=== PATIENT | male | born 1980 | race Caucasian/White ===

== ENCOUNTER 2021-09-07 14:10 | Outpatient (CLI) | payer BC, SELFPAY ==
[2021-09-07 18:26] LABS: Hematocrit 43.5 % (42.0-52.0); Hemoglobin 14.4 g/dL (14.0-18.0); Mean Corpuscular HGB Conc 33.1 g/dl (32-36); Mean Corpuscular Hemoglobin 31.1 pg (26-34); Mean Platelet Volume 9.9 fl (7.4-10.4); Platelet Count Result 220 k/mm3 (150-375); Red Blood Count 4.63 M/mm3 (4.6-6.20); Red Cell Distribution Width 12.8 % (11.5-14.5)
[2021-09-07 18:31] LABS: Alanine Aminotransferase 52 U/L (4-50); Albumin Level 4.3 g/dL (3.5-5.1); Alkaline Phosphatase 61 U/L (38-126); Anion Gap 9 mmol/L (8-16); Aspartate Amino Transferase 38 U/L (17-59); Bilirubin,Total 0.5 mg/dL (0.2-1.3); Blood Urea Nitrogen 15 mg/dL (9-20); Calcium 9.1 mg/dL (8.4-10.2); Carbon Dioxide 31 mmol/L (22-30); Chloride 102 mmol/L (98-107); Cholesterol 160 mg/dL (0-200); Estimated Glomerular Filt Rate > 60; Glucose 96 mg/dL (65-110); HDL Direct 21 mg/dL; Potassium 4.7 mmol/L (3.4-5.0); Sodium 142 mmol/L (137-145); Triglycerides 297 mg/dL (<150)
[2021-09-07 18:35] LABS: Hemoglobin A1C 5.1 % (<5.7)
[2021-09-07 18:45] LABS: LDL Cholesterol Direct 107 mg/dL
== END 2021-09-07 14:11 | disposition home or self-care (01) ==
LOC: ANHBWCLAB 14:12
PROVIDERS: PCP Family Medicine; Visit Provider Family Medicine
DX: E78.5 Hyperlipidemia, unspecified (principal); E66.9 Obesity, unspecified; R53.83 Other fatigue; I10 Essential (primary) hypertension; Z00.00 Encounter for general adult medical examination without abnormal findings
CPT/HCPCS: 36415; 80053; 80061; 83036; 84550; 85027

== ENCOUNTER 2022-03-15 08:38 | Outpatient (CLI) | payer BC, SELFPAY ==
--- NOTE | 2022-03-15 08:43 | EST_ITS ---
Patient Info Name: Anthony Zarate Age: 41 years : 1980 Gender: Male Ht: 73 in Wt: 230 lbs BSA: 2.34 m2 Technical Quality: Fair Exam Date: 03/15/2022 9:20 AM Exam Location: [facility] Patient Status: Outpatient Admit Date: 03/15/2022 Staff Ordering Physician: Destin Galindo DO Power System Electrical Engineer: Clare Mirza RDCS Attending Provider: Destin Galindo DO Exercise Technologist: Yesenia Rogers CT Exercise Physician: Destin Galindo DO Exam Type: CA stress echo Study Info Indications I10 - Essential (primary) hypertension - JAW PAIN Treadmill exercise stress echocardiogram is performed. Summary 1. 1. Negative Burton exercise stress test for ischemic ST changes by ECG criteria. 2. 2. Good functional capacity, achieving 12 METs of workload. 3. 3. Appropriate HR response to exercise. 4. 4. Appropriate HR reocvery at 1 minute post exercise. 5. 5. Negative stress echocardiogram for ischemia by wall motion analysis. 6. 6. Patient informed of the above results. Stress Echo Findings Left Ventricle Appropriate increase in LV endocardial thickening with systole. Appropriate augmentation of contractility with systole. No wall motion abnormality. Left Ventricle Preserved LV systolic function, no wall motion abnormality. Protocol: [place] Stress ECG Details Stage: REST Duration (min): 1 min : 2 sec Speed (mph): 0.0 Grade (%): 0 HR (bpm): 77 SBP (mmHg): 116 DBP (mmHg): 72 METS: --- Stage: REST Duration (min): 17 min : 30 sec Speed (mph): 0.0 Grade (%): 0 HR (bpm): 78 SBP (mmHg): 116 DBP (mmHg): 72 METS: --- Stage: STAGE 1 Duration (min): 1 min : 0 sec Speed (mph): 1.7 Grade (%): 10 HR (bpm): 103 SBP (mmHg): 116 DBP (mmHg): 72 METS: --- Stage: STAGE 1 Duration (min): 2 min : 0 sec Speed (mph): 1.7 Grade (%): 10 HR (bpm): 105 SBP (mmHg): 116 DBP (mmHg): 72 METS: --- Stage: STAGE 1 Duration (min): 3 min : 0 sec Speed (mph): 1.7 Grade (%): 10 HR (bpm): 106 SBP (mmHg): 164 DBP (mmHg): 76 METS: --- Stage: STAGE 2 Duration (min): 1 min : 0 sec Speed (mph): 2.5 Grade (%): 12 HR (bpm): 112 SBP (mmHg): 164 DBP (mmHg): 76 METS: --- Stage: STAGE 2 Duration (min): 2 min : 0 sec Speed (mph): 2.5 Grade (%): 12 HR (bpm): 113 SBP (mmHg): 141 DBP (mmHg): 78 METS: --- Stage: STAGE 2 Duration (min): 3 min : 0 sec Speed (mph): 2.5 Grade (%): 12 HR (bpm): 115 SBP (mmHg): 141 DBP (mmHg): 78 METS: --- Stage: STAGE 3 Duration (min): 1 min : 0 sec Speed (mph): 3.4 Grade (%): 14 HR (bpm): --- SBP (mmHg): 167 DBP (mmHg): 69 METS: --- Stage: STAGE 3 Duration (min): 2 min : 0 sec Speed (mph): 3.4 Grade (%): 14 HR (bpm): 126 SBP (mmHg): 167 DBP (mmHg): 69 METS: --- Stage: STAGE 3 Duration (min): 3 min : 0 sec Speed (mph): 3.4 Grade (%):
== END 2022-03-15 08:39 | disposition home or self-care (01) ==
LOC: ANHCARD 08:40
PROVIDERS: PCP Family Medicine; Visit Provider Internal Medicine Cardiovascular Disease
DX: R07.9 Chest pain, unspecified (principal)
CPT/HCPCS: 93351

== ENCOUNTER 2023-04-24 08:54 | Outpatient (CLI) | payer OTHER, SELFPAY ==
[2023-04-24 18:59] LABS: Hematocrit 49.9 % (42.0-52.0); Hemoglobin 15.9 g/dL (14.0-18.0); Mean Corpuscular HGB Conc 31.9 g/dl (32-36); Mean Corpuscular Hemoglobin 30.5 pg (26-34); Mean Corpuscular Volume 95.6 fl (80-100); Mean Platelet Volume 9.9 fl (7.4-10.4); Platelet Count Result 214 k/mm3 (150-375); Red Blood Count 5.22 M/mm3 (4.6-6.20); Red Cell Distribution Width 13.1 % (11.5-14.5); White Blood Count 7.6 K/mm3 (4.5-10.0)
[2023-04-24 19:51] LABS: Alanine Aminotransferase 78 U/L (6-50); Albumin Level 4.5 g/dL (3.5-5.1); Alkaline Phosphatase 49 U/L (38-126); Anion Gap 6 mmol/L (8-16); Aspartate Amino Transferase 66 U/L (17-59); Bilirubin,Total 0.8 mg/dL (0.2-1.3); Blood Urea Nitrogen 15 mg/dL (9-20); Calcium 9.4 mg/dL (8.4-10.2); Carbon Dioxide 32 mmol/L (22-30); Chloride 102 mmol/L (98-107); Cholesterol 193 mg/dL (0-200); Estimated Glomerular Filt Rate > 60; Glucose 92 mg/dL (65-110); HDL Direct 25 mg/dL; Potassium 4.7 mmol/L (3.4-5.0); Sodium 140 mmol/L (137-145); Triglycerides 359 mg/dL (<150)
[2023-04-24 20:02] LABS: LDL Cholesterol Direct 113 mg/dL
[2023-04-24 20:21] LABS: Prostate Specific Antigen 0.6 ng/mL (< OR = 4.0)
[2023-04-28 19:25] LABS: Testosterone Free 329.5 pg/mL (35.0-155.0); Testosterone Total 1216 ng/dL (250-1100)
[2023-04-29 19:48] LABS: Estradiol, Ultrasensitive 62 pg/mL (< OR = 29)
== END 2023-04-24 08:55 | disposition home or self-care (01) ==
LOC: ANHBWCLAB 08:55
PROVIDERS: PCP Family Medicine; Visit Provider Family Medicine
DX: E66.9 Obesity, unspecified (principal); E78.5 Hyperlipidemia, unspecified; I10 Essential (primary) hypertension; J45.909 Unspecified asthma, uncomplicated; M10.9 Gout, unspecified; Z00.00 Encounter for general adult medical examination without abnormal findings; R79.89 Other specified abnormal findings of blood chemistry
CPT/HCPCS: 36415; 80053; 80061; 82670; 84153; 84402; 84403; 85027; G0103

== ENCOUNTER 2023-11-16 10:14 | Emergency (ER) | payer OTHER, SELFPAY ==
[2023-11-16] VITALS (27 sets, daily range): BP systolic 124–157; BP diastolic 74–93; PULSE 57–86; RESP 10–19; TEMP 36.7; O2SAT 96–100
--- NOTE | ~2023-11-16 | XR_ITS ---
XR chest 2V DATE: 11/16/2023 12:08 INDICATION: Chest pain radiating to left arm TECHNIQUE: PA and lateral views COMPARISON: None FINDINGS: Normal heart size. No hilar or mediastinal enlargement. No pulmonary infiltrate or consolid ation, pleural effusion or pulmonary vascular congestion or pneumothorax is detected. IMPRESSION: Negative Reviewed, dictated and finalized at location L. O PRODUCTION MANAGER IMPRESSION: Negative
--- NOTE | 2023-11-16 10:15 | ECG_ITS ---
Measurements Intervals [place] Rate: 63 P: 1 WI: 191 QRS: 19 QRSD: 116 T: 19 QT: 369 QTc: 379 Interpretive Statements SINUS RHYTHM INTRAVENTRICULAR CONDUCTION DELAY BORDERLINE ECG NO PREVIOUS ECG AVAILABLE FOR COMPARISON Electronically Signed On 11-16-2023 11:00:56 [employer] by Destin Galindo D.O.
[2023-11-16 10:38] LABS: Basophils Percent Auto 0.3 % (0.2-1.2); Eosinophils Absolute Auto 0.3 K/mm3 (0-0.3); Eosinophils Percent Auto 5.5 % (0-4.4); Hematocrit 45.4 % (42.0-52.0); Hemoglobin 14.9 g/dL (14.0-18.0); Immature Granulocyte Absolute 0.01 K/mm3 (0.00-0.031); Immature Granulocyte Percent A 0.2 % (0-0.5); Lymphocytes Absolute Auto 1.91 K/mm3 (0.9-3.2); Lymphocytes Percent Auto 32.8 % (18.3-44.2); Mean Corpuscular HGB Conc 32.8 g/dl (32-36); Mean Corpuscular Hemoglobin 30.7 pg (26-34); Mean Corpuscular Volume 93.4 fl (80-100); Mean Platelet Volume 9.2 fl (7.4-10.4); Monocytes Absolute Auto 0.4 K/mm3 (0.1-0.6); Neutrophils Absolute Auto 3.2 K/mm3 (1.3-6.7); Neutrophils Percent Auto 55.2 % (45.5-73.1); Platelet Count Result 195 k/mm3 (150-375); Red Blood Count 4.86 M/mm3 (4.6-6.20); Red Cell Distribution Width 12.2 % (11.5-14.5); White Blood Count 5.8 K/mm3 (4.5-10.0)
[2023-11-16 10:53] LABS: Alanine Aminotransferase 161 U/L (6-50); Albumin Level 4.4 g/dL (3.5-5.1); Alkaline Phosphatase 66 U/L (38-126); Anion Gap 10 mmol/L (8-16); Aspartate Amino Transferase 69 U/L (17-59); Bilirubin,Total 0.8 mg/dL (0.2-1.3); Blood Urea Nitrogen 16 mg/dL (9-20); Carbon Dioxide 28 mmol/L (22-30); Chloride 101 mmol/L (98-107); Estimated CRCL calculation 102 ml/min; Estimated Glomerular Filt Rate > 60; Glucose 100 mg/dL (65-110); Lipase 83 U/L (23-300); Potassium 4.8 mmol/L (3.4-5.0); Sodium 139 mmol/L (137-145)
[2023-11-16 11:05] LABS: Troponin I < 0.012 ng/mL (0.000-0.034)
--- NOTE | 2023-11-16 12:57 | ED.CHESTPAIN ---
HPI - Chest Pain General Chief Complaint: Chest Pain Stated Complaint: chest pain Time Seen by Provider: 11/16/23 12:05 History of Present Illness HPI narrative: Patient is a 43-year-old male with a history of hypertension presenting with chest pain. Patient states that for the last several days he has had intermittent left-sided chest pain that seems to be exacerbated by caffeine. Exertion has no affect. States that he has asthma and often has intermittent shortness of breath that is unchanged. No lightheadedness, diaphoresis, nausea or vomiting. States that the pain sometimes goes into his left shoulder. No back pain. States that he does sometimes feel anxious. No fevers or cough. Related Data Home Medications Medication Instructions Recorded Confirmed omega [id number] oil 300 cap PO 02/09/22 03/17/22 mg-108 mg-162 mg-600 mg capsule,delay rel Allergies Allergy/AdvReac Type Severity Reaction Status Date / Time No Known Allergies Allergy Mild Verified 11/16/23 10:35 Review of Systems Review of Systems: All systems reviewed & are unremarkable except as noted in HPI and below PMFSH Past Medical History Medical History Asthma URI (upper respiratory infection) Family History Family History Mother Cancer Social History Social History Smoking status: Never smoker Tobacco type: cigars Alcohol intake: current Drinks per week: 2 Substance use: never Lack of Transportation: No Lack of Food: Never True Current Housing: I Have Housing Concerned About Future Housing: No Difficulty Paying Gas/Electric Bills: No Difficulty Paying for Meds: No Currently Unemployed: No Education: Associate Degree Difficulty w/ Childcare or Family Care: No Living arrangements: with family Gender identity (if verbalized by the patient): Male Sexual Orientation (if Verbalized by the Patient): Straight or Heterosexual Exam Narrative: GENERAL: Well-appearing, In no acute distress, pleasant cooperative HEAD: Normocephalic, atraumatic. EYES: PERRLA and EOMI. ENT: Mucous membranes moist. NECK: Supple. CHEST: Clear to auscultation. No respiratory distress. no chest wall tenderness HEART: Regular rate and rhythm. No murmur heard. Normal peripheral pulses. ABDOMEN: Soft, nontender, nondistended EXTREMITIES: No edema. SKIN: Warm, dry, no rash. NEURO: No focal deficits. Alert and oriented x3. PSYCH: Normal mood and affect. Course Vital Signs Vital signs: Vital Signs Temperature 98.1 F 11/16/23 10:32 Pulse Rate 73 11/16/23 10:32 Respiratory Rate 16 11/16/23 10:32 Blood Pressure 157/91 H 11/16/23 10:32 Pulse Oximetry 99 11/16/23 10:32 Oxygen Delivery Room Air 11/16/23 10:32 Temperature 98.1 F 11/16/23 10:32 Pulse Rate 72 11/16/23 14:16 Respiratory Rate 14 11/16/23 14:16 Blood Pressure 134/74 11/16/23 14:16 Pulse Oximetry 97 11/16/23 14:16 Oxygen Delivery Room Air 11/16/23 11:19 MDM - Chest Pain MDM Narrative Medical decision making narrative: 43-year-old male presenting with intermittent left-sided chest pain for the last several days. Patient is hypertensive, Otherwise vitals are within normal limits. EKG per my interpretation shows normal sinus rhythm, no ST elevations or depressions. Blood work is unremarkable. Troponin undetectable x2. Chest x-ray without acute abnormalities. On re-evaluation, the patient is resting comfortably. Discussed the reassuring workup. Feel he is safe for outpatient management. Patient states that he actually already has appointment with his type caster on Monday. Advised that he make sure to keep this appointment. Appropriate return precautions given. Patient is agreeable with this plan. Discharged in stable c
[2023-11-16] MEDS: CYCLOBENZAPRINE HCL 10 MG TABLET PO (13:10)
[2023-11-16 13:38] LABS: Troponin I < 0.012 ng/mL (0.000-0.034)
== END 2023-11-16 14:20 | disposition home or self-care (01) ==
PROVIDERS: Emergency Medicine; Emergency Provider Emergency Medicine; PCP Family Medicine
DX: R07.89 Other chest pain (principal); I10 Essential (primary) hypertension; J45.909 Unspecified asthma, uncomplicated; I45.9 Conduction disorder, unspecified
CPT/HCPCS: 36415; 71046; 80053; 83690; 84484; 85025; 85610; 85730; 93005; 99284; A9270

== ENCOUNTER 2023-12-19 07:41 | Outpatient (CLI) | payer OTHER, SELFPAY ==
[2023-12-19 18:45] LABS: Hematocrit 47.4 % (42.0-52.0); Hemoglobin 15.2 g/dL (14.0-18.0); Mean Corpuscular HGB Conc 32.1 g/dl (32-36); Mean Corpuscular Hemoglobin 30.5 pg (26-34); Mean Platelet Volume 9.3 fl (7.4-10.4); Platelet Count Result 216 k/mm3 (150-375); Red Blood Count 4.99 M/mm3 (4.6-6.20); Red Cell Distribution Width 12.5 % (11.5-14.5); White Blood Count 9.4 K/mm3 (4.5-10.0)
[2023-12-19 19:08] LABS: Alanine Aminotransferase 96 U/L (6-50); Albumin Level 4.3 g/dL (3.5-5.1); Alkaline Phosphatase 71 U/L (38-126); Anion Gap 6 mmol/L (8-16); Aspartate Amino Transferase 74 U/L (17-59); Bilirubin,Total 0.7 mg/dL (0.2-1.3); Blood Urea Nitrogen 15 mg/dL (9-20); Carbon Dioxide 31 mmol/L (22-30); Chloride 102 mmol/L (98-107); Cholesterol 170 mg/dL (0-200); Estimated Glomerular Filt Rate > 60; Glucose 101 mg/dL (65-110); HDL Direct 24 mg/dL; Sodium 139 mmol/L (137-145); Triglycerides 215 mg/dL (<150)
[2023-12-19 19:09] LABS: Alanine Aminotransferase 96 U/L (6-50); Albumin Level 4.3 g/dL (3.5-5.1); Alkaline Phosphatase 71 U/L (38-126); Aspartate Amino Transferase 72 U/L (17-59); Bilirubin,Total 0.8 mg/dL (0.2-1.3)
[2023-12-19 19:19] LABS: LDL Cholesterol Direct 114 mg/dL
[2023-12-19 19:35] LABS: Prostate Specific Antigen 0.6 ng/mL (< OR = 4.0)
[2023-12-19 19:47] LABS: Hepatitis B Surface Antigen Negative (Negative)
[2023-12-19 19:53] LABS: HAV RESULT Negative (Negative); Hepatitis B Core IgM Result Negative (Negative)
[2023-12-19 20:04] LABS: Hepatitis C Virus Antibody Negative (Negative)
[2023-12-23 10:13] LABS: Testosterone Free 83.5 pg/mL (35.0-155.0); Testosterone Total 449 ng/dL (250-1100)
== END 2023-12-19 07:42 | disposition home or self-care (01) ==
LOC: ANHBWCLAB 07:44
PROVIDERS: PCP Family Medicine; Visit Provider Internal Medicine Cardiovascular Disease
DX: R74.8 Abnormal levels of other serum enzymes (principal); R79.89 Other specified abnormal findings of blood chemistry; E78.5 Hyperlipidemia, unspecified
CPT/HCPCS: 36415; 80053; 80061; 80074; 80076; 84153; 84402; 84403; 85027; G0103